=== PATIENT | male | born 1970 | race Caucasian/White ===

== ENCOUNTER 2020-04-14 14:54 | Emergency (ER) | payer BC, OTHER ==
[2020-04-14 15:22] VITALS: BP 167/103; PULSE 100; RESP 18; TEMP 98.6
[2020-04-14] MEDS ORDERED: SODIUM CHLORIDE 0.9% 500 ML 500 ML IV STA (17:02)
[2020-04-14 17:29] LABS: Basophils # (A) 0.1 k/uL (0-0.2); Basophils % (A) 1 %; Eosinophils # (A) 0.3 k/uL (0-0.7); Eosinophils % (A) 4 %; HCT 53.1 % (39.0-53.0); Lymphocytes # (A) 1.5 k/uL (1.0-4.8); Lymphocytes % (A) 19 %; MCH 29.7 pg (25.0-35.0); MCV 92.9 fL (80.0-100.0); Mean Platelet Volume 8.1; Monocytes # (A) 0.6 k/uL (0-1.0); Monocytes % (A) 7 %; Neutrophils # (A) 5.2 k/uL (1.3-7.7); Neutrophils % (A) 67 %; Platelet Count 229 k/uL (150-450); RBC 5.71 m/uL (4.30-5.90); RDW 13.3 % (11.5-15.5); WBC 7.8 k/uL (3.8-10.6)
--- NOTE | 2020-04-14 17:38 | XR ---
EXAMINATION TYPE: XR KUB DATE OF EXAM: 04/14/2020 COMPARISON: NONE HISTORY: Obstruction of LAP-BAND. Surgery 15 years ago. TECHNIQUE: 2 views upright FINDINGS: There is no sign of intestinal obstruction or pneumoperitoneum. Fecal pattern is normal. Th ere is (surgery noted. Lung bases are clear. There are clips from cholecystectomy. IMPRESSION: Nonacute abdomen.
[2020-04-14 17:42] LABS: ALT 13 U/L (4-49); AST 23 U/L (17-59); African American GFR (CKD) >90 (>60 ml/min/1.73 sqM); Albumin 4.2 g/dL (3.5-5.0); Alkaline Phosphatase 89 U/L (38-126); Amylase 64 U/L (30-110); Anion Gap 6 mmol/L; Blood Urea Nitrogen 15 mg/dL (9-20); Calcium 9.3 mg/dL (8.4-10.2); Carbon Dioxide 25 mmol/L (22-30); Chloride 109 mmol/L (98-107); Glucose 102 mg/dL (74-99); Non-African American GFR(CKD) >90 (>60 ml/min/1.73 sqM); Potassium 4.4 mmol/L (3.5-5.1); Sodium 140 mmol/L (137-145); Total Bilirubin 0.7 mg/dL (0.2-1.3); Total Protein 7.1 g/dL (6.3-8.2)
[2020-04-14 17:59] LABS: Appearance,Urine Clear (Clear); Bilirubin,Urine Negative (Negative); Blood,Urine Negative (Negative); Color,Urine Yellow; Glucose,Urine (UA) Negative (Negative); Ketones,Urine 1+ (Negative); Leukocyte Esterase,Urine Negative (Negative); Nitrite,Urine Negative (Negative); PH, Urine 5.5 (5.0-8.0); Protein,Urine Trace (Negative); Specific Gravity,Urine 1.033 (1.001-1.035)
--- NOTE | 2020-04-14 19:08 | ED ---
General Adult HPI - General Chief complaint: Recheck/Abnormal Lab/Rx Stated complaint: something stuck in lapban, unable to eat Time Seen by Provider: 04/14/20 15:24 Source: patient, RN notes reviewed Mode of arrival: ambulatory Limitations: no limitations - History of Present Illness Initial comments: 49-year-old male with a past medical history of hypertension, cholecystectomy presents to the emergency department for a chief complaint of inability to swallow solids or liquids. Patient states that he has a lap band that was performed [address] Ortgea. Patient states no fluids or been added to it. Patient states he was eating steak last night and felt like a piece got stuck. He has been unable to swallow solids or liquids since that time. However patient states he is also not felt hungry. States that normally when this happens he can mechanically bringing up the material however today he cannot.Patient has no other complaints at this time including shortness of breath, chest pain, abdominal pain, nausea or vomiting, headache, or visual changes. - Related Data Home Medications Medication Instructions Recorded Confirmed Losartan-Hctz 50-12.5 mg [Hyzaar 1 tab PO DAILY 02/09/16 02/09/16 50-12.5] Previous Rx's Medication Instructions Recorded Ketotifen 0.025% Ophth Soln 1 drop BOTH EYES BID #1 bottle 02/09/16 [Zaditor] Omeprazole [PriLOSEC] 40 mg PO AC-BRKFST #30 cap 02/09/16 Allergies Allergy/AdvReac Type Severity Reaction Status Date / Time No Known Allergies Allergy Verified 04/14/20 15:22 Review of Systems ROS Statement: Those systems with pertinent positive or pertinent negative responses have been documented in the HPI. ROS Other: All systems not noted in ROS Statement are negative. Past Medical History Past Medical History: Hypertension History of Any Multi-Drug Resistant Organisms: None Reported Past Surgical History: Cholecystectomy Additional Past Surgical History / Comment(s): lap band, carpal tunnel. Past Psychological History: No Psychological Hx Reported Smoking Status: Current every day smoker Past Alcohol Use History: Occasional Past Drug Use History: None Reported General Exam Limitations: no limitations General appearance: alert, in no apparent distress Head exam: Present: atraumatic, normocephalic, normal inspection Eye exam: Present: normal appearance, PERRL, EOMI. Absent: scleral icterus, conjunctival injection, periorbital swelling ENT exam: Present: normal exam, mucous membranes moist Neck exam: Present: normal inspection. Absent: tenderness, meningismus, lymphadenopathy Respiratory exam: Present: normal lung sounds bilaterally. Absent: respiratory distress, wheezes, rales, rhonchi, stridor Cardiovascular Exam: Present: regular rate, normal rhythm, normal heart sounds. Absent: systolic murmur, diastolic murmur, rubs, gallop, clicks GI/Abdominal exam: Present: soft, normal bowel sounds. Absent: distended, tenderness, guarding, rebound, rigid Neurological exam: Present: alert Course Vital Signs 04/14/20 15:20 Temperature 98.6 F Pulse Rate 100 Respiratory 18 Rate Blood Pressure 167/103 O2 Sat by Pulse 98 Oximetry Medical Decision Making - Medical Decision Making vitals are stable. HPI and physical exam as documented. CBC CMP unremarkable. Urinalysis unremarkable. 1+ ketones, patient given fluids. Patient was reevaluated and states he no longer has any discomfort whatsoever. He is requesting food and drink. He was able to keep down both solids and liquids. Patient states the material must have passed. Patient is requesting discharge home. I did state that he needs to return if he has any worsening symptoms or is unable to keep down things and he is agreeable. He will follow up with Dr. Ortega and primary care. - Lab Data Result diagrams: 04/14/20 17:09 04/14/20 17:09 Lab Results 04/14/20 04/14/20 04/14/20 Range/Units 17:09 17:09 17:23 WBC 7.8 (3.8-10.6) k/uL RBC 5.71 (4.30-5.90) m/uL Hgb 17.0 (13.0-17.5) gm/dL Hct 53.1 H (39.0-53.0) % MCV 92.9 (80.0-100.0) fL MCH 29.7 (25.0-35.0) pg MCHC 32.0 (31.0-37.0) g/dL RDW 13.3 (11.5-15.5) % Plt Count 229 (150-450) k/uL Neutrophils % 67 % Lymphocytes % 19 % Monocytes % 7 % Eosinophils % 4 % Basophils % 1 % Neutrophils # 5.2 (1.3-7.7) k/uL Lymphocytes # 1.5 (1.0-4.8) k/uL Monocytes # 0.6 (0-1.0) k/uL Eosinophils # 0.3 (0-0.7) k/uL Basophils # 0.1 (0-0.2) k/uL Sodium 140 (137-145) mmol/L Potassium 4.4 (3.5-5.1) mmol/L Chloride 109 H (98-107) mmol/L Carbon Dioxide 25 (22-30) mmol/L Anion Gap 6 mmol/L BUN 15 (9-20) mg/dL Creatinine 0.80 (0.66-1.25) mg/dL Est GFR (CKD-EPI)AfAm >90 (>60 ml/min/1.73 sqM) Est GFR (CKD-EPI)NonAf >90 (>60 ml/min/1.73 sqM) Glucose 102 H (74-99) mg/dL Calcium 9.3 (8.4-10.2) mg/dL Total Bilirubin 0.7 (0.2-1.3) mg/dL AST 23 (17-59) U/L ALT 13 (4-49) U/L Alkaline Phosphatase 89 (38-126) U/L Total Protein 7.1 (6.3-8.2) g/dL Albumin 4.2 (3.5-5.0) g/dL Amylase 64 (30-110) U/L Lipase 78 (23-300) U/L Urine Color Yellow Urine Appearance Clear (Clear) Urine pH 5.5 (5.0-8.0) Ur Specific [place] 1.033 (1.001-1.035) Urine Protein Trace H (Negative) Urine Glucose (UA) Negative (Negative) Urine Ketones 1+ H (Negative) Urine Blood Negative (Negative) Urine Nitrite Negative (Negative) Urine Bilirubin Negative (Negative) Urine Urobilinogen 2.0 (<2.0) mg/dL Ur Leukocyte Esterase Negative (Negative) Disposition Clinical Impression: Vomiting Disposition: HOME SELF-CARE Condition: Good Instructions (If sedation given, give patient instructions): Acute Nausea and Vomiting (ED) Additional Instructions: If you have any worsening symptoms or are unable to swallow solids or liquids return immediately to the emergency department for surgical consult. Otherwise follow-up with primary care in 1-2 days. Is patient prescribed a controlled substance at d/c from ED?: No Referrals: Anand Skaggs DO [Primary Care Provider] - 1-2 days Time of Disposition: 19:07
== END 2020-04-14 19:23 | disposition home or self-care (01) ==
LOC: EC 14:54
DX: R11.10 Vomiting, unspecified (principal); I10 Essential (primary) hypertension; F17.200 Nicotine dependence, unspecified, uncomplicated; Z98.84 Bariatric surgery status; Z90.49 Acquired absence of other specified parts of digestive tract; Z79.899 Other long term (current) drug therapy
CPT/HCPCS: 36415; 74018; 80053; 81003; 82150; 83690; 85025; 99284

== ENCOUNTER 2020-04-27 09:22 | Emergency (ER) | payer OTHER ==
[2020-04-27 09:35] VITALS: RESP 18
--- NOTE | 2020-04-27 10:30 | ED ---
Lower Extremity Injury HPI - General Chief Complaint: Extremity Injury, Lower Stated Complaint: fall leg pain 1wk ago Time Seen by Provider: 04/27/20 09:42 Source: patient, RN notes reviewed, old records reviewed Mode of arrival: ambulatory Limitations: no limitations - History of Present Illness Initial Comments: 49-year-old male presents emergency Department today with complaints of right leg bruising and swelling after he fell off of a platform. He states this is a week ago. He states that he was able to ambulate. He was sent here because his family's concerns had worsening swelling or bruising noted. Is on a blood thinners. He denies any difficulty with walking. Reports only fell he also has contusion over his right shoulder and has full range of motion and over the right hip but again is able to walk. Patient states that he has had no history of blood clots. - Related Data Home Medications Medication Instructions Recorded Confirmed Losartan-Hctz 50-12.5 mg [Hyzaar 1 tab PO DAILY 02/09/16 02/09/16 50-12.5] Previous Rx's Medication Instructions Recorded Ketotifen 0.025% Ophth Soln 1 drop BOTH EYES BID #1 bottle 02/09/16 [Zaditor] Omeprazole [PriLOSEC] 40 mg PO AC-BRKFST #30 cap 02/09/16 Allergies Allergy/AdvReac Type Severity Reaction Status Date / Time No Known Allergies Allergy Verified 04/14/20 15:22 Review of Systems ROS Statement: Those systems with pertinent positive or pertinent negative responses have been documented in the HPI. ROS Other: All systems not noted in ROS Statement are negative. Past Medical History Past Medical History: Hypertension Additional Past Medical History / Comment(s): seasonal allergies History of Any Multi-Drug Resistant Organisms: None Reported Past Surgical History: Cholecystectomy Additional Past Surgical History / Comment(s): lap band, carpal tunnel. Past Psychological History: No Psychological Hx Reported Smoking Status: Current every day smoker Past Alcohol Use History: Occasional Past Drug Use History: None Reported General Exam - General Exam Comments Initial Comments: 49-year-old male. No distress. Limitations: no limitations General appearance: alert, in no apparent distress Head exam: Present: atraumatic, normocephalic, normal inspection Eye exam: Present: normal appearance, PERRL, EOMI. Absent: scleral icterus, conjunctival injection, periorbital swelling ENT exam: Present: normal exam, mucous membranes moist Neck exam: Present: normal inspection. Absent: tenderness, meningismus, lymphadenopathy Respiratory exam: Present: normal lung sounds bilaterally. Absent: respiratory distress, wheezes, rales, rhonchi, stridor Cardiovascular Exam: Present: regular rate, normal rhythm, normal heart sounds. Absent: systolic murmur, diastolic murmur, rubs, gallop, clicks GI/Abdominal exam: Present: soft, normal bowel sounds. Absent: distended, tenderness, guarding, rebound, rigid Extremities exam: Present: normal inspection, full ROM, normal capillary refill. Absent: tenderness, pedal edema, joint swelling, calf tenderness Right Upper Leg exam: Present: normal inspection, full ROM Knee exam: Present: normal inspection, full ROM Lower Leg exam: Present: full ROM, tenderness, swelling, ecchymosis (multiple areas of echymosis and swelling over R leg into ankle). Absent: normal inspection Ankle exam: Present: normal inspection, tenderness, swelling Foot/Toe exam: Present: normal inspection, full ROM Neurovascular tendon exam: Present: no vascular compromise Gait: observed and normal Back exam: Present: normal inspection Neurological exam: Present: alert, oriented X3, CN II-XII intact Psychiatric exam: Present: normal affect, normal mood Skin exam: Present: warm, dry, intact, normal color. Absent: rash Course Vital Signs 04/27/20 09:32 Temperature 97.9 F Pulse Rate 98 Respiratory 18 Rate Blood Pressure 108/90 O2 Sat by Pulse 95 Oximetry Medical Decision Making - Medical Decision Making 49-year-old comes in today for evaluation for concern for bruising and swelling over the right leg. He reports the following week ago. Denies any pain with ambulation. He reports that his pain is better but is concerned besides bruising noted to the calf. This time his x-ray showed no acute fracture. Is able to ambulate. Doppler ultrasound is negative for DVT. Is neurovascularly intact. Unable to ambulate. I discussed this is definite soft tissue swelling and muscular bruising that is not coming to the surface. Discussed rest ice and elevate. Discussed return parameters. - Radiology Data Radiology results: report reviewed No acute osseous lesion on foot x-ray. No acute osseous lesions. Her symptoms negative for DVT in the right leg. Disposition Clinical Impression: Contusion of right leg, Fall, Leg swelling Disposition: HOME SELF-CARE Condition: Good Instructions (If sedation given, give patient instructions): Contusion in A dults (ED) Additional Instructions: Patient advised to keep the leg up and elevated. Is any worsening pain or other alarming signs or symptoms. Return to the ED or follow-up with your PCP. Is patient prescribed a controlled substance at d/c from ED?: No Referrals: Anand Skaggs DO [Primary Care Provider] - 1-2 days Time of Disposition: 11:11
--- NOTE | 2020-04-27 10:34 | XR ---
EXAMINATION TYPE: XR tibia fibula RT , 4 VIEWS DATE OF EXAM ORDERED: 04/27/2020 HISTORY: pain, fall bruising. COMPARISON: None. FINDINGS: There are both plantar and Achilles calcaneal spurs. No fracture or dislocation is seen. N o bony destructive lesion is seen. IMPRESSION: NO ACUTE OSSEOUS LESION.
--- NOTE | 2020-04-27 10:36 | XR ---
EXAMINATION TYPE: XR foot complete RT , 3 VIEWS DATE OF EXAM ORDERED: 04/27/2020 HISTORY: pain, fall bruising. COMPARISON: Previous study dated 09/29/2008. FINDINGS: There are both plantar and Achilles calcaneal spurs. No fracture, dislocation or other acu te osseous lesion is seen. There is some swelling over the dorsum of the foot. IMPRESSION: NO ACUTE OSSEOUS LESION.
--- NOTE | 2020-04-27 11:00 | US ---
EXAMINATION TYPE: US venous doppler duplex LE RT DATE OF EXAM: 04/27/2020 10:50 AM COMPARISON: NONE CLINICAL HISTORY: pain, fall bruising. Right leg pain following fall 1 week ago SIDE PERFORMED: Right TECHNIQUE: The lower extremity deep venous system is examined utilizing real time linear array sonog elisa with graded compression, doppler sonography and color-flow sonography. VESSELS IMAGED: External Iliac Vein (EIV) Common Femoral Vein Deep Femoral Vein Greater Saphenous Vein * Femoral Vein Popliteal Vein Small Saphenous Vein * Proximal Calf Veins (* superficial vessels) Right Leg: Appears negative for DVT No popliteal fossa lesion is identified. IMPRESSION: THIS EXAMINATION IS NEGATIVE FOR DVT IN THE RIGHT LEG.
[2020-04-27 11:27] VITALS: PULSE 78; TEMP 98
[2020-04-27 11:28] VITALS: BP 146/90
== END 2020-04-27 11:28 | disposition home or self-care (01) ==
LOC: EC 09:22
DX: S80.11XA Contusion of right lower leg, initial encounter (principal); I10 Essential (primary) hypertension; F17.200 Nicotine dependence, unspecified, uncomplicated; Z79.899 Other long term (current) drug therapy; W17.89XA Other fall from one level to another, initial encounter
CPT/HCPCS: 99284

== ENCOUNTER → 2021-12-16 | Outpatient (CLI) | payer OTHER | END | disposition home or self-care (01) | LOC: LABWHC1 11:24 | PROVIDERS: ATTEND Family Medicine | DX: U07.1 COVID-19 (principal) | CPT/HCPCS: U0003; C9803 ==